=== PATIENT | male | born 1945 | race African-American/Black ===

== ENCOUNTER 2016-11-11 16:19 | Inpatient (IN) ==
--- NOTE | 2016-11-11 17:37 | EKG Report ---
Stationary ECG Study [facility] ER Test Date: 11/11/2016 4:35:46 PM Pat Name: JF LANE Department: Room: Gender: Medical Delivery Technician: Jolie Christianson : 1945 Requested by: Homer Davidson Order Number: [id number] Jos MD: SHARATH NG Intervals [place] Rate: 78 P: 75 CO: 161 QRS: 45 QRSD: 90 T: 75 QT: 380 QTc: 413 Interpretive Statements SINUS RHYTHM Electronically Signed On 11-12-16 09:56:46 NURSING STAFFING COORDINATOR by SHARATH NG [id number]
[2016-11-11] MEDS ORDERED: methylPREDNISolone SOD SUC 125 MG/2 ML VIAL IV STA (17:40)
[2016-11-11] MEDS ORDERED: ONDANSETRON 4 MG/2 ML VIAL IV STA (17:40)
[2016-11-11] MEDS ORDERED: NITROGLYCERIN 2% OINT 1 INCH/GM PACK TOP STA (17:40)
[2016-11-11] MEDS ORDERED: FUROSEMIDE 100 MG/10 ML VIAL IV STA (17:40)
[2016-11-11] MEDS ORDERED: MORPHINE 2 MG/1 ML SYRINGE IV STA (17:40)
[2016-11-11] MEDS ORDERED: ALBUTEROL NEB SOLN 5 MG/ML 20 ML/BOTTLE RESP TX ONE (18:00)
[2016-11-11] MEDS ORDERED: FUROSEMIDE 40 MG/4 ML VIAL ONE (18:02)
[2016-11-11] MEDS ORDERED: NITROGLYCERIN 2% OINT 1 INCH/GM PACK TOP ONE (18:02)
[2016-11-11] MEDS ORDERED: MORPHINE 2 MG/1 ML SYRINGE ONE (18:03)
[2016-11-11] MEDS ORDERED: ONDANSETRON 4 MG/2 ML VIAL ONE (18:03)
[2016-11-11] MEDS ORDERED: FUROSEMIDE 20 MG/2 ML VIAL ONE (18:03)
[2016-11-11] MEDS ORDERED: methylPREDNISolone SOD SUC 125 MG/2 ML VIAL ONE (18:03)
[2016-11-11 18:13] LABS: Basophils % 0.5 % (0.0-0.8); Eosinophils # 0.3 10*3/uL (0.0-0.87); Eosinophils % 3.8 % (0.00-10.9); Hematocrit 37.4 VOL% (42.0-52.0); Immature Granulocytes % 0.3 %; Immature Granulocytes Absolute 0.02 #; Lymphocytes # 2.1 10*3/uL (1.4-4.0); Lymphocytes % 28.1 % (21.2-54.2); Mean Corpuscular HGB Conc 32.1 GM/DL (32-36); Mean Corpuscular Hemoglobin 28 PG (27-34); Mean Corpuscular Volume 86.4 FL (87-102); Monocytes # 0.8 10*3/uL (0.11-0.8); Monocytes % 10.5 % (1.7-12.7); Neutrophils # 4.2 10*3/uL (1.4-7.4); Neutrophils % 56.8 % (38.7-73.9); Platelet Count 249 10*3/uL (130-400); Red Blood Count 4.33 10*6/uL (3.8-5.5); Red Cell Distribution Width 14.4 % (9.3-17.3); White Blood Count 7.4 10*3/uL (4.5-13.71)
[2016-11-11 18:20] LABS: Apearance,Urine CLEAR (Clear); Bilirubin,Urine Negative (Negative); Blood, Urine Negative (Negative); Glucose,Urine (UA) Negative (Negative); Ketones,Urine Negative (Negative); Mucus,Urine Occasional /LPF (Occasional); Nitrite,Urine Negative (Negative); Protein,Urine Negative; RBC,Urine 1 /HPF (0-4); Urine Color Yellow (Yellow); Urine Specific Gravity 1.018 (1.001-1.035); Urine Urobilinogen < 2.0 EU/DL (0.2-1.0); WBC,Urine 1 /HPF (0-6)
[2016-11-11 18:24] LABS: PT Patient Result 10.4 SECS
--- NOTE | 2016-11-11 18:35 | EKG Report ---
Stationary ECG Study [facility] ER Test Date: 11/11/2016 6:34:07 PM Pat Name: JF LANE Department: Room: Gender: M Procurement Services Manager: : 1945 Requested by: Homer Davidson Order Number: [id number] Jos MD: SHARATH NG Intervals [place] Rate: 96 P: 45 NV: 150 QRS: 8 QRSD: 92 T: 58 QT: 366 QTc: 420 Interpretive Statements SINUS RHYTHM Electronically Signed On 11-12-16 09:57:15 HYDRATOR by SHARATH NG [id number]
[2016-11-11 18:52] LABS: Alanine Aminotransferase 28 U/L (16-61); Albumin 3.5 G/DL (3.4-5.0); Alkaline Phosphatase 119 U/L (45-117); Aspartate Amino Transferase 21 U/L (0-37); Blood Urea Nitrogen 14 MG/DL (7-18); Calcium 9.4 MG/DL (8.5-10.1); Glucose 154 MG/DL (74-106); Magnesium 2.1 MG/DL (1.8-2.4); Osmolality,Calculated 280.5 MOS/KG (273-304); Potassium 4.2 MMOL/L (3.5-5.1); Sodium 139 MMOL/L (136-145); Total Protein 6.9 G/DL (6.4-8.3); Troponin I Only < 0.015 NG/ML (0.00-0.045)
--- NOTE | 2016-11-11 18:54 | Emergency Department Note ---
Logan Ortega Emily, am scribing for, and in the presence of, Homer Newberry MD 18: 11. Rohith Ortega Charles R, MD, personally performed the services described in this documentation, ascribed by Patricia Ford in my presence, and it is both accurate and complete [id number] . Arrival - Arrival Chief Complaint: Shortness of Breath Stated Complaint: sob ED Nursing Triage Note: swelling to lower extremities with sob that started about seven days ago. Mode of Arrival: Ambulatory Limitations: No Limitations Source: Patient Time Seen by Provider: 11/11/16 17:32 - History of Present Illness HPI Narrative: Pt is a 71 y/o male who came to ED with c/o swelling to lower extremities that started 7 days ago. Pt has associated sxs of SOB, mild, intermittent chest "tightness," dyspnea with exertion, orthopnea, right arm pain, diaphoresis, but nausea. Pt also denies hx of CHF. No other complaint/pain in ED. Onset (ago): day(s) Consistency: constant Severity: mild, moderate Severity scale (1-10): 5 Quality: aching Allergies/Adverse Reactions: Allergies Allergy/AdvReac Type Severity Reaction Status Date / Time Penicillins AdvReac HIVES Verified 07/14/16 11:35 Home Medications: Home Medications Medication Instructions Recorded Confirmed Type Budesonide/Formoterol 160-4.5 2 puff INH BID inhaler 07/16/16 11/11/16 Rx [Symbicort 160-4.5] glipiZIDE [Glucotrol] 5 mg PO BIDAC tablet 07/16/16 11/11/16 Rx Amlodipine Besylate [Amlodipine 10 mg PO DAILY 11/11/16 11/11/16 History Besylate] Atorvastatin Calcium 20 mg PO DAILY 11/11/16 11/11/16 History Metformin HCl 500 mg PO BIDAC 11/11/16 11/11/16 History Montelukast Sodium 10 mg PO DAILY 11/11/16 11/11/16 History Review of System - Review of System 12 point system: reviewed and no additional remarkable complaints except as stated - Review of System Constitutional: Present: diaphoresis. Absent: chills, fever Respiratory: Present: respiratory distress. Absent: cough Cardiovascular: Present: chest pain (mild tightness), dyspnea on exertion, orthopnea, edema (in lower extremities). Absent: syncope Gastrointestinal: Absent: abdominal pain, nausea, vomiting, diarrhea Musculoskeletal: Present: arm pain (right). Absent: back pain, leg pain, neck pain Skin: Absent: rash Neurological: Absent: headache, numbness, paresthesias Medical,Surgical,& Family Hx - Medical History Cardio: History of: Hypertension Psychological: History of: Psychiatric Problems (psychosis, unspecified) Endocrine: History of: Diabetes Mellitus (NIDDM), Dyslipidemia Respiratory: History of: COPD Musculoskeletal: History of: Degenerative Disk Disease - Surgical History Abdominal Surgeries: Surgical HX of: Appendectomy - Family History Family History: Reports;: Family Cancer (MOTHER-UNKNOWN OF WHAT KIND) Denies;: Family Diabetes, Family Heart Disease, Family Hypertension, Family Psychiatric Problems, Family Stroke - Social History Smoking Status: Never smoker Exam Vital Signs: Vital Signs Temperature 98.3 F 11/11/16 17:42 Pulse Rate 89 11/11/16 18:45 Respiratory Rate 20 11/11/16 18:45 Blood Pressure 152/94 11/11/16 18:45 O2 Sat by Pulse Oximetry 96 11/11/16 18:45 - General General appearance: alert, in no apparent distress - Head Head exam: Present: atraumatic, normocephalic - Eye Eye exam: Present: PERRL, EOMI - ENT ENT exam: Present: mucous membranes moist. Absent: mucous membranes dry - Neck Neck exam: Present: full ROM. Absent: tenderness - Chest Chest inspection: Present: symmetric chest wall rise. Absent: tenderness - Respiratory Respiratory exam: Present: rales (bilateral rales). Absent: respiratory distress - Cardiovascular Cardiovascular exam: Present: tachycardia, normal heart sounds - Abdominal Exam Abdominal exam: Present: soft. Absent: tenderness - Extremities Exam Extremities exam: Present: full ROM, pedal edema (+2). Absent: tenderness - Neurological Exam Neurological exam: Present: alert, oriented X3, CN II-XII intact. Absent: motor sensory deficit - Psychiatric Psychiatric exam: Present: normal affect, normal mood - Skin Skin exam: Present: warm, dry Course - Consultations Consultation #1: Dr. Cisneros will admit patient Time: 21:07 Results - Labs CBC & BMP: 11/11/16 18:00 11/11/16 18:00 Lab Results: I have reviewed the patients labs Labs: Laboratory Tests 11/11/16 11/11/16 18:00 18:04 Hgb 12.0 L Hct 37.4 L MCV 86.4 L Urine Urobilinogen < 2.0 H Laboratory Tests 11/11/16 18:00 Glucose 154 H Alkaline Phosphatase 119 H Albumin/Globulin Ratio 1.0 L Laboratory Tests 11/11/16 18:00 Glucose 154 H Alkaline Phosphatase 119 H Albumin/Globulin Ratio 1.0 L - Diagnostic Findings Procedure: Chest x-ray: report reviewed by me (Cardiomegaly without decompensation.) Disposition Clinical Impression: Acute dyspnea, Chest pain, Congestive heart failure Case discussed with: patient, patient's family Disposition: Still a Patient Condition: Stable Time of Disposition: 21:12
--- NOTE | 2016-11-11 18:55 | XRay Report ---
Exam: XR chest 1V portable Date: 11/11/2016 5:41 PM Indication: Shortness of breath Comparison: 07/15/2016 Technical:AP portable Findings: External cardiac leads tubing are present. Cardiomegaly is present. No obvious overt congestive failure infiltrates or effusions present. Mediastinum and bony structures are intact Impression: 1. Cardiomegaly without decompensation. PROCEDURE INTERPRETED AT [facility] DEPARTMENT OF RADIOLOGY Final Report Signed by: Dr. Luis Cornejo
[2016-11-11] MEDS ORDERED: ACETAMINOPHEN 325 MG TABLET PO PRN (22:27)
[2016-11-11] MEDS ORDERED: ONDANSETRON 4 MG/2 ML VIAL IV PRN (22:27)
[2016-11-11] MEDS: glipiZIDE 5 MG TABLET PO SCH (22:55)
[2016-11-11] MEDS: ENOXAPARIN 40 MG/0.4 ML SYRINGE SUBCUT SCH (22:56)
[2016-11-11] MEDS: BUDESONIDE/FORMOTEROL 160-4.5 INHALER 6 GM INH SCH (22:56)
--- NOTE | 2016-11-11 23:04 | Hospitalist History & Physical ---
Assessment and Plan (1) DM2 (diabetes mellitus, type 2) Status: Acute Assessment and plan: The patient is to the hospital with diabetes controlled on oral agents. The patient has swelling to lower extremities with cardiomegaly but with brain nitrated peptide of 10. The patient has mild vascular redistribution on chest x -ray and some COPD with apparent obesity hypoventilation syndrome. The patient' s Larsh of edema is likely multifactorial. There does not appear to be much proteinuria and the creatinine is normal. We will try to improve the patient's symptoms with diuresis, beta agonist nebulized breathing therapies, and control of blood pressure. We'll check echocardiogram as well as Doppler of lower extremities to rule out deep vein thrombosis and possible pulmonary embolism. We'll recheck troponin value in the morning as well as EKG. Current Visit: Yes Qualifiers: Diabetes mellitus complication status: with ophthalmic complications Diabetic retinopathy severity: with moderate nonproliferative retinopathy Diabetes mellitus macular edema: without macular edema Diabetes mellitus snf insulin use: without snf use Laterality: bilateral (2) Congestive heart failure Status: Acute Current Visit: Yes (3) Acute exacerbation of chronic obstructive airways disease Status: Resolved Current Visit: No (4) Atypical chest pain Status: Acute Current Visit: No History of Present Illness Chief complaint: shortness of breath and swelling of lower extremities History of present illness: Mr. Cisneros is a 71 year old male who has outpatient medical [facility]. The patient has history of essential hypertension, cardiomegaly, diabetes mellitus type 2, and COPD. The patient's symptoms began about 7 days prior to admission the hospital and included shortness of breath associated with swelling of the lower extremities and tightness of abdomen. The patient claims compliance with his medications. The patient's symptoms are moderate, continuous, and worsening. The patient's symptoms began to improve in the emergency room with beta agonist nebulized breathing therapy and diuretic medication. The patient's symptoms are not associated with fever, chills, weight loss. The patient's symptoms are associated with weight gain and swelling of the abdomen. The patient does not complain any change of bowel habit. Home Medications Medication Instructions Recorded Confirmed Type Budesonide/Formoterol 160-4.5 2 puff INH BID inhaler 07/16/16 11/11/16 Rx [Symbicort 160-4.5] glipiZIDE [Glucotrol] 5 mg PO BIDAC tablet 07/16/16 11/11/16 Rx Amlodipine Besylate [Amlodipine 10 mg PO DAILY 11/11/16 11/11/16 History Besylate] Atorvastatin Calcium 20 mg PO DAILY 11/11/16 11/11/16 History Metformin HCl 500 mg PO BIDAC 11/11/16 11/11/16 History Montelukast Sodium 10 mg PO DAILY 11/11/16 11/11/16 History Allergies Allergy/AdvReac Type Severity Reaction Status Date / Time Penicillins AdvReac HIVES Verified 07/14/16 11:35 Medical,Surgical,& Family Hx - Medical History Cardio: History of: Hypertension Psychological: History of: Psychiatric Problems (psychosis, unspecified) Endocrine: History of: Diabetes Mellitus (NIDDM), Dyslipidemia Respiratory: History of: COPD Musculoskeletal: History of: Degenerative Disk Disease - Surgical History Abdominal Surgeries: Surgical HX of: Abdominal Surgery, Appendectomy - Family History Family History: Reports;: Family Cancer (MOTHER-UNKNOWN OF WHAT KIND) Denies;: Family Diabetes, Family Heart Disease, Family Hypertension, Family Psychiatric Problems, Family Stroke - Social History Smoking Status: Never smoker Frequency of Alcohol Use: None Type of Drug Use: None Marital Status: Lives With:: Spouse Functional capacity: independent ambulation 12 point system: reviewed and no additional remarkable complaints except as stated Exam - Constitutional Vitals: Period Temp Pulse Resp BP Sys/Knutson Pulse Ox Last 24 Hr 97.3 F 98-99 18-20 129-147/82-87 90-93 Exam: Constitutional System: Mild distress on mechanical shortness of breath. No tremulousness. Head: Normocephalic, atraumatic. Ears, Nose and Throat System: No evidence of Otitis or Mastoiditis. No epistaxis or discharge Eyes System: Pupils equal, round, and reactive. Extraocular muscles intact. Neck: Supple, without adenopathy, 1+ jugular venous distention. No thyromegaly , neck mass, or prior surgery apparent. Respiratory System: Chest with mild wheezing and mild air trapping to auscultation. There are no rales apparent Cardiovascular System: Heart with regular rate and rhythm. There is S4 murmur. There is a right ventricular heave GI System: Abdomen soft, nontender, distended. Hypo active bowel sounds present. Musculoskeletal System: limbs with 1+ pedal edema. Full distal pulses. Neurological System: No discernable sensory deficit. No aphasia Psychiatric System: Conversation is rational, and somewhat anxious Results - Labs CBC & BMP: 11/11/16 18:00 11/11/16 18:00 Lab Results: I have reviewed the past 24 hour labs - Diagnostic Findings Procedure: Chest x-ray: image reviewed by me (cardiomegaly and mild vascular redistribution of the lungs without infiltrate)
[2016-11-12 05:09] LABS: Basophils % 0.1 % (0.0-0.8); Hematocrit 37.6 VOL% (42.0-52.0); Hemoglobin 11.9 GM/DL (14.0-18.0); Immature Granulocytes % 0.5 %; Immature Granulocytes Absolute 0.04 #; Lymphocytes # 0.4 10*3/uL (1.4-4.0); Lymphocytes % 5.5 % (21.2-54.2); Mean Corpuscular HGB Conc 31.6 GM/DL (32-36); Mean Corpuscular Hemoglobin 27 PG (27-34); Mean Corpuscular Volume 85.8 FL (87-102); Mean Platelet Volume 11.8 FL (9.6-12.0); Monocytes # 0.1 10*3/uL (0.11-0.8); Monocytes % 0.9 % (1.7-12.7); Neutrophils # 7.3 10*3/uL (1.4-7.4); Platelet Count 242 10*3/uL (130-400); Red Blood Count 4.38 10*6/uL (3.8-5.5); Red Cell Distribution Width 14.4 % (9.3-17.3); White Blood Count 7.8 10*3/uL (4.5-13.71)
[2016-11-12 05:40] LABS: Blood Urea Nitrogen 18 MG/DL (7-18); Calcium 9.1 MG/DL (8.5-10.1); Glucose 386 MG/DL (74-106); Potassium 4.9 MMOL/L (3.5-5.1); Sodium 136 MMOL/L (136-145); Troponin I Only < 0.015 NG/ML (0.00-0.045)
[2016-11-12 06:04] LABS: Hypochromasia Slight; Lymphocytes 4 % (20-55); Platelet Estimate Adequate; Segmented Neutrophils 94 % (50-85); Total Cells Counted 100
--- NOTE | 2016-11-12 07:20 | Hospitalist Progress Note ---
Assessment and Plan (1) Edema Status: Acute Assessment and plan: Possible vasodilatory effect of amlodipine. Doubt BMI high enough to generate false negative BNP and if cor pulmonale would expect BNP rise. No support for diabetic nephrosis or similar process. Current Visit: Yes (2) DM2 (diabetes mellitus, type 2) Status: Chronic Current Visit: Yes Qualifiers: Diabetes mellitus complication status: with ophthalmic complications Diabetic retinopathy severity: with moderate nonproliferative retinopathy Diabetes mellitus macular edema: without macular edema Diabetes mellitus water maintenance supervisor insulin use: without fci use Laterality: bilateral Hospitalist: Subjective Interval history: 71 yo male treated in August of 2015 for bronchospasm with mild hypoxemia without CO2 retention. At that time had bronchoscopy performed with retained secretions only. He reports subsequent follow-up with Dr Brewer. He was admitted last June for atypical chest pain with bronchospasm. Admitted on this occasion with peripheral edema and dyspnea. His chest Xray shows possible cardiomegaly without infiltrate or cephalization of flow. His ECG, cTnI, and BNP are normal. He is on high dose Norvasc. He is diabetic without proteinuria and with normal serum albumen level. He has bumped his creatinine with diuresis. Exam - Constitutional Vitals: Period Temp Pulse Resp BP Sys/Knutson Pulse Ox Last 24 Hr 97.3 F-98.5 F 97-110 18-20 129-154/82-87 90-97 General appearance: over weight - Respiratory Respiratory exam: Present: clear to auscultation bilaterally. Absent: rales, rhonchi, wheezes - Cardiovascular Cardiovascular exam: Present: regular rate and rhythm - GI/Abdominal GI/Abdominal exam: Absent: ascites, distended, organomegaly, tenderness - Extremities Exam Extremities exam: Present: edema (trace) - Neurological Exam Neurological exam: Present: alert, oriented X3 - Psychiatric Psychiatric exam: Present: normal affect, normal mood Results - Labs CBC & BMP: 11/12/16 03:56 11/12/16 03:56 Labs: cTnI negative
--- NOTE | 2016-11-12 07:56 | XRay Report ---
History is dyspnea Comparison 11/11/2016 The heart is mildly enlarged with mild vascular prominence There are slightly increasing interstitial opacities in the lung bases with mild hypoaeration changes. No confluent infiltrate is seen. Impression: Slightly increasing basilar infiltrates versus edema with mildly increasing hypoaeration changes in the lung bases as well PROCEDURE INTERPRETED AT [facility] DEPARTMENT OF RADIOLOGY Final Report Signed by: Dr. Carol Rose
--- NOTE | 2016-11-12 08:06 | EKG Report ---
Stationary ECG Study [facility] Test Date: 11/12/2016 8:05:35 AM Pat Name: JF CISNEROS Department: Room: 266 Gender: M Patient Care Assistant: : 1945 Requested by: Leon Cisneros Order Number: [id number] Jos MD: SHARATH NG Intervals [place] Rate: 88 P: 53 AL: 168 QRS: 17 QRSD: 89 T: 58 QT: 364 QTc: 410 Interpretive Statements SINUS RHYTHM Electronically Signed On 11-12-16 10:00:09 ENTERPRISE SYSTEMS MANAGER by SHARATH NG [id number]
[2016-11-12] MEDS: glipiZIDE 5 MG TABLET PO SCH ×2 (08:35→17:05)
[2016-11-12] MEDS: ATORVASTATIN 40 MG TABLET PO SCH (08:35)
[2016-11-12] MEDS: PANTOPRAZOLE 40 MG TABLET PO SCH (08:35)
[2016-11-12] MEDS: amLODIPine 10 MG TABLET PO SCH (08:35)
[2016-11-12] MEDS: metFORMIN 500 MG TABLET PO SCH ×2 (08:36→17:05)
[2016-11-12] MEDS: BUDESONIDE/FORMOTEROL 160-4.5 INHALER 6 GM INH SCH ×2 (08:38→21:42)
[2016-11-12] MEDS ORDERED: FUROSEMIDE 40 MG/4 ML VIAL IV SCH (09:00)
[2016-11-12] MEDS ORDERED: oxyCODONE/ACETAMINOPHEN 5-325 MG TABLET PO PRN (11:13)
[2016-11-12] MEDS: MONTELUKAST 10 MG TABLET PO SCH (12:38)
--- NOTE | 2016-11-12 15:27 | Ultrasound Report ---
Exam: US venous doppler LE BI Indication: Dyspnea Date: 11/12/2016 Findings: Grayscale color flow duplex/Doppler imaging and spectral analysis waveform imaging was performed with real-time ultrasound with image stored and captured. The right common femoral, superficial femoral, popliteal saphenous veins are patent with normal augmentation and compression. There is no evidence of popliteal or Pittman's cyst. Normal wave form analysis present. Normal color flow The left common femoral, superficial femoral, popliteal saphenous veins are patent with normal augmentation and compression. There is no evidence of popliteal or Pittman's cyst. Normal wave form analysis present. Normal color flow Impression: 1. No DVT PROCEDURE INTERPRETED AT [facility] DEPARTMENT OF RADIOLOGY Final Report Signed by: Dr. Luis Cornejo
--- NOTE | 2016-11-12 20:34 | ECHO Report ---
Luis Cisneros Exam Date: 11/12/2016 09:54 Referring Physician: Technologist: Matt BALTAZAR Age: 71 Ht (in): Wt (lb): Gender: M Exam Location: [facility] Echo Indications: DM, dyspnea, CHF, COPD, chest pain BP: / HR: Rhythm: Sinus Technical Quality: Fair IMPRESSIONS Normal LV systolic function, ejection fraction 55%. Grade 1/4 diastolic dysfunction. Moderate concentric left ventricular hypertrophy. Mild left atrial enlargement. Mild mitral and tricuspid regurgitation. MEASUREMENTS (Male / Female) Normal Values 2D ECHO LV Diastolic Diameter PLAX 4.9 cm 4.2 - 5.9 / 3.9 - 5.3 cm LV Systolic Diameter PLAX 3.8 cm LV Fractional Shortening PLAX 23.5 % IVS Diastolic Thickness 1.6 cm 0.6 - 1.0 / 0.6 - 0.9 cm LVPW Diastolic Thickness 1.6 cm 0.6 - 1.0 / 0.6 - 0.9 cm RV Internal Dim ED PLAX 2.9 cm Aortic Root Diameter 2.6 cm LA Systolic Diameter LX 4.3 cm 3.0 - 4.0 / 2.7 - 3.8 cm DOPPLER TR Peak Velocity 221.0 cm/s TR Peak Gradient 19.5 mmHg FINDINGS Left Ventricle Moderately increased septal wall thickness.- Mild- moderate concentric left ventricular hypertrophy. Left ventricular ejection fraction is estimated at 55 %. Right Ventricle Normal right ventricular size. Right Atrium Normal right atrial size. Left Atrium Mildly increased left atrial diameter. Mitral Valve Mildly thickened mitral valve with mild mitral regurgitation. Aortic Valve Aortic valve sclerosis without stenosis or regurgitation. Tricuspid Valve Morphologically normal tricuspid valve. Mild tricuspid valve regurgitation. Tricuspid regurgitation velocities suggest a PAP of 19.5 mmHg + RAP. Pulmonic Valve Morphologically normal pulmonic valve. Pericardium No pericardial effusion. Aorta Normal size aortic root and proximal ascending aorta. Ranjana Simpson MD (Electronically Signed) Final Date: 12 November 2016 20:33
[2016-11-12] MEDS: ENOXAPARIN 40 MG/0.4 ML SYRINGE SUBCUT SCH (21:42)
[2016-11-13 06:35] LABS: Osmolality,Calculated 291.4 MOS/KG (273-304); Potassium 4.5 MMOL/L (3.5-5.1)
[2016-11-13] MEDS: metFORMIN 500 MG TABLET PO SCH ×2 (09:46→18:08)
[2016-11-13] MEDS: MONTELUKAST 10 MG TABLET PO SCH (09:46)
[2016-11-13] MEDS: amLODIPine 10 MG TABLET PO SCH (09:46)
[2016-11-13] MEDS: ATORVASTATIN 40 MG TABLET PO SCH (09:46)
[2016-11-13] MEDS: PANTOPRAZOLE 40 MG TABLET PO SCH (09:46)
[2016-11-13] MEDS: glipiZIDE 5 MG TABLET PO SCH ×2 (09:46→18:09)
[2016-11-13] MEDS: BUDESONIDE/FORMOTEROL 160-4.5 INHALER 6 GM INH SCH ×2 (09:47→21:18)
--- NOTE | 2016-11-13 11:25 | Physician Query Form ---
CLICK EDIT DOCUMENT TO SELECT QUERY ANSWER --> OK --> SIGN Joselin Hudson RN Clinical [employer] W) [phone] (f) [phone] [email or web address] PROVIDERS: Make your selection(s) from the choices in EACH section by typing an "x" and enter comments in the comment section. Please use your independent medical judgment in providing your response. This request does not imply that any particular answer is desired or expected. CLINICAL INDICATORS: (Providers should not edit this section) Based on documentation of Creatinine from 1.00 to 1.60. GFR form 114 to 69. Monitored with serial lab checks. Clarify which of the following most accurately represents the patient's renal status: (x ) Acute kidney injury (non-traumatic) ( ) Acute renal failure ( ) Acute renal failure with underlying Chronic Kidney Disease (CKD) - please provide stage below ( ) Acute renal failure with pathological renal lesion ( ) Acute renal failure with necrosis ( ) tubular ( ) medullary ( ) cortical ( ) CKD - please provide stage below ( ) End Stage Renal Disease ( ) Acute interstitial nephritis ( ) Hepatorenal syndrome ( ) Other, please specify: ( ) Clinically unable to determine Chronic Kidney Disease Stages Source: National Kidney Disease Foundation ( ) Stage I (eGFR > or = 90) ( ) Stage II (eGFR 60 - 89) ( ) Stage III (eGFR 30 - 59) ( ) Stage IV (eGFR 15 - 29) ( ) Stage V (eGFR < 15 or dialysis) COMMENTS: Use of terms such as suspected, likely, or probable (associated with a specific diagnosis that is being evaluated, monitored, or treated as if it exists) are acceptable and can be restated in the discharge summary if not ruled out. MTDD
--- NOTE | 2016-11-13 11:28 | Physician Query Form ---
CLICK EDIT DOCUMENT TO SELECT QUERY ANSWER --> OK --> SIGN Joselin Hudson RN Clinical Shift Mgr W) [phone] (f) [phone] [email or web address] PROVIDERS: Make your selection(s) from the choices in EACH section by typing an "x" and enter comments in the comment section. Please use your independent medical judgment in providing your response. This request does not imply that any particular answer is desired or expected. CLINICAL INDICATORS: (Providers should not edit this section) Based on documentation of "Acute CHF" Echo shows EF 55%. Grade 1/4 Diastolic Dysfunction. CXR shows slightly increasing basilar infiltrates. BNP 11. Treated with IV Lasix. Please provide further specificity regarding CHF. ACUITY: (x ) Acute ( ) Chronic ( ) Acute on Chronic ( ) Clinicallly unable to determine TYPE: ( ) Systolic (x ) Diastolic ( ) Combined Systolic/Diastolic ( ) Other, please specify: ( ) Clinically unable to determine ( ) The patient does NOT have CHF COMMENTS: Use of terms such as suspected, likely, or probable (associated with a specific diagnosis that is being evaluated, monitored, or treated as if it exists) are acceptable and can be restated in the discharge summary if not ruled out. [facility]
[2016-11-13] MEDS ORDERED: BISACODYL 5 MG TABLET PO ONE (11:55)
--- NOTE | 2016-11-13 12:00 | Hospitalist Progress Note ---
Assessment and Plan - Time spent with patient Time spent with patient: Less than 30 minutes (due to assessment, plan and documentation) (1) Acute diastolic CHF (congestive heart failure) Status: Acute Current Visit: Yes (2) Acute dyspnea Status: Acute Current Visit: Yes (3) DM2 (diabetes mellitus, type 2) Status: Chronic Current Visit: Yes Qualifiers: Diabetes mellitus complication status: with ophthalmic complications Diabetic retinopathy severity: with moderate nonproliferative retinopathy Diabetes mellitus macular edema: without macular edema Diabetes mellitus skilled nursing insulin use: without aerospace assembler use Laterality: bilateral (4) Hypertension Status: Acute Current Visit: No (5) Acute exacerbation of chronic obstructive airways disease Status: Resolved Current Visit: No Hospitalist: Subjective Interval history: Mr. Cisneros was seen lying in bed today. He is having a lot of abdominal swelling and lower extremity swelling. It has been felt that this is due to his Norvasc. His family states that he has been on HCTZ in the past, but this was stopped with his Lisinopril was stopped. I will restart this at 6.25 mg PO daily. He also complaints of slight increase in shortness of breath. Will get a cxr to ensure nothing there. Shallow breaths. He has not had a BM in several days and is feeling quite constipated. I have ordered Dulcolax 2 tabs now for this. We will continue to monitor his progress. He was admitted with Acute diastolic CHf, COPD exacerbation. He did have a bump in his creatinine to 1.6, but is down now. SHAWANDA has resolved. Labs in AM. Exam - Constitutional Vitals: Period Temp Pulse Resp BP Sys/Knutson Pulse Ox Last 24 Hr 96.4 F-98.1 F 82-101 16-20 143-167/72-88 90-100 General appearance: no acute distress, over weight - Head Head exam: Present: normal inspection, normocephalic - Eye Eye exam: Present: EOMI. Absent: scleral icterus Pupils: Present: SABINE, normal accommodation - ENT ENT exam: Present: normal exam, normal oropharynx - Neck Neck exam: Present: normal inspection. Absent: lymphadenopathy - Respiratory Respiratory exam: Present: other (shallow breaths). Absent: accessory muscle use - Cardiovascular Cardiovascular exam: Present: regular rate and rhythm - GI/Abdominal GI/Abdominal exam: Present: normal bowel sounds, distended. Absent: tenderness - Extremities Exam Extremities exam: Present: edema (generalized) - Back Exam Back exam: Present: normal inspection. Absent: muscle spasm - Neurological Exam Neurological exam: Present: alert, oriented X3 - Psychiatric Psychiatric exam: Present: normal affect, normal mood - Skin Skin exam: Present: normal color, warm, dry, intact Results - Labs CBC & BMP: 11/12/16 03:56 11/13/16 05:26 Lab Results: I have reviewed the past 24 hour labs
[2016-11-13] MEDS: hydroCHLOROthiazide 25 MG TABLET PO SCH (12:07)
--- NOTE | 2016-11-13 12:43 | XRay Report ---
History short of breath Chest, 2 views Comparison 11/12/2016 The heart is enlarged. There is chronic vascular congestion with slightly increased markings in the lung bases. No more focal consolidation seen. Confluent shadows overlie the left chest laterally Impression: slight increasing basilar infiltrates versus edema superimposed on chronic changes PROCEDURE INTERPRETED AT [facility] DEPARTMENT OF RADIOLOGY Final Report Signed by: Dr. Carol Rose
[2016-11-13] MEDS: ENOXAPARIN 40 MG/0.4 ML SYRINGE SUBCUT SCH (21:30)
[2016-11-14 04:44] LABS: Basophils % 0.2 % (0.0-0.8); Eosinophils # 0.2 10*3/uL (0.0-0.87); Eosinophils % 2.4 % (0.00-10.9); Hematocrit 38.3 VOL% (42.0-52.0); Immature Granulocytes % 0.3 %; Immature Granulocytes Absolute 0.03 #; Lymphocytes # 3.5 10*3/uL (1.4-4.0); Lymphocytes % 35.3 % (21.2-54.2); Mean Corpuscular HGB Conc 31.3 GM/DL (32-36); Mean Corpuscular Hemoglobin 28 PG (27-34); Mean Platelet Volume 10.5 FL (9.6-12.0); Monocytes % 10.2 % (1.7-12.7); Neutrophils # 5.1 10*3/uL (1.4-7.4); Neutrophils % 51.6 % (38.7-73.9); Platelet Count 258 10*3/uL (130-400); Red Blood Count 4.35 10*6/uL (3.8-5.5); Red Cell Distribution Width 14.7 % (9.3-17.3); White Blood Count 9.8 10*3/uL (4.5-13.71)
[2016-11-14 05:22] LABS: Albumin 3.6 G/DL (3.4-5.0); Bilirubin,Total 1.4 MG/DL (0.2-1.0); Calcium 9.4 MG/DL (8.5-10.1); Osmolality,Calculated 287.1 MOS/KG (273-304); Potassium 4.7 MMOL/L (3.5-5.1); Total Protein 7.3 G/DL (6.4-8.3)
[2016-11-14] MEDS: amLODIPine 10 MG TABLET PO SCH (09:15)
[2016-11-14] MEDS: PANTOPRAZOLE 40 MG TABLET PO SCH (09:16)
[2016-11-14] MEDS: MONTELUKAST 10 MG TABLET PO SCH (09:16)
[2016-11-14] MEDS: glipiZIDE 5 MG TABLET PO SCH (09:16)
[2016-11-14] MEDS: hydroCHLOROthiazide 25 MG TABLET PO SCH (09:16)
[2016-11-14] MEDS: ATORVASTATIN 40 MG TABLET PO SCH (09:16)
[2016-11-14] MEDS: metFORMIN 500 MG TABLET PO SCH (09:16)
[2016-11-14] MEDS: BUDESONIDE/FORMOTEROL 160-4.5 INHALER 6 GM INH SCH (09:19)
[2016-11-14 12:18] VITALS: BP 131/81
--- NOTE | 2016-11-14 13:40 | Discharge Summary ---
Hospital Course - Hospital Course Hospital Course: This hospitalization included patient admitted for shortness of breath volume overload. He had adjustment in antihypertensive medications. Diuretic medications were restarted. Patient had a brisk diuresis once this was done. Blood pressure continued to improve. His volume status has improved. His shortness of breath also improved. No chest pain reported. He has been able to sit up at side of the bed without difficulty. At this time is reached maximal hospitalization. He is ready for discharge. He'll follow with outpatient clinic at the [facility] as scheduled. - Time spent with patient Time with patient DS: Greater than 30 minutes Diagnosis - Discharge Diagnosis (1) Congestive heart failure Status: Chronic (2) Acute dyspnea Status: Resolved (3) Hypertension Status: Chronic (4) Diabetes Status: Chronic (5) Edema Status: Resolved Discharge Plan - Discharge Data Disposition: Disch To Home/Self Care Condition at Discharge: Stable Discharge Diet: advance to your usual diet Activity: resume usual activities as tolerated Contact your physician if you experience:: fever over 101 - Discharge Medications New Pantoprazole Tab [Protonix Tab] 40 mg PO DAILY #30 tablet hydroCHLOROthiazide [Hydrochlorothiazide] 6.25 mg PO DAILY #30 tablet Continue Budesonide/Formoterol 160-4.5 [Symbicort 160-4.5] 2 puff INH BID inhaler glipiZIDE [Glucotrol] 5 mg PO BIDAC tablet Montelukast Sodium 10 mg PO DAILY Amlodipine Besylate 10 mg PO DAILY Atorvastatin Calcium 20 mg PO DAILY Metformin HCl 500 mg PO BIDAC Oxycodone HCl/Acetaminophen [Oxycodone-Acetaminophen 5-325] 1 each PO QID PRN PRN Reason: Pain - Follow Up or Referral - Forms/Instructions Additional Discharge Instructions: Follow-up with Dr. Hernandez as scheduled at the [facility] Exam - Constitutional Vitals: Period Temp Pulse Resp BP Sys/Knutson Pulse Ox Last 24 Hr 97.1 F-97.8 F 61-92 18-22 131-167/74-92 93-97 General appearance: over weight - Head Head exam: Present: normal inspection - Eye Eye exam: Present: EOMI Pupils: Present: SABINE - Respiratory Respiratory exam: Present: clear to auscultation bilaterally - Cardiovascular Cardiovascular exam: Present: regular rate and rhythm - GI/Abdominal GI/Abdominal exam: Present: normal bowel sounds - Extremities Exam Extremities exam: Present: normal inspection, full ROM Discharge Results Labs on day of discharge: Labs from last 24 hours 11/14/16 11/14/16 11/14/16 11:55 08:01 04:35 WBC RBC Hgb Hct MCV MCH MCHC RDW Plt Count MPV Neut % (Auto) Lymph % (Auto) [place] % (Auto) Eos % (Auto) Baso % (Auto) Neut # (Auto) Lymph # (Auto) [place] # (Auto) Eos # (Auto) Baso # (Auto) Immature Gran % Nucleated RBC % Immature Gran # Nucleated RBCs # Sodium 142 Potassium 4.7 Chloride 102 Carbon Dioxide 31 Anion Gap 13.7 BUN 20 H Creatinine 1.10 GFR Calculation 109 BUN/Creatinine Ratio 18.00 Glucose 136 H POC Glucose 142 H 166 H Calculated Osmolality 287.1 Calcium 9.4 Total Bilirubin 1.40 H AST 18 ALT 26 Alkaline Phosphatase 114 Total Protein 7.3 Albumin 3.6 Globulin 3.7 H Albumin/Globulin Ratio 0.9 L 11/14/16 11/13/16 11/13/16 04:35 20:24 15:42 WBC 9.8 RBC 4.35 Hgb 12.0 L Hct 38.3 L MCV 88.0 MCH 28 MCHC 31.3 L RDW 14.7 Plt Count 258 MPV 10.5 Neut % (Auto) 51.6 Lymph % (Auto) 35.3 [place] % (Auto) 10.2 Eos % (Auto) 2.4 Baso % (Auto) 0.2 Neut # (Auto) 5.1 Lymph # (Auto) 3.5 [place] # (Auto) 1.0 H Eos # (Auto) 0.2 Baso # (Auto) 0.0 Immature Gran % 0.3 Nucleated RBC % 0.0 Immature Gran # 0.03 Nucleated RBCs # 0.00 Sodium Potassium Chloride Carbon Dioxide Anion Gap BUN Creatinine GFR Calculation BUN/Creatinine Ratio Glucose POC Glucose 162 H 186 H Calculated Osmolality Calcium Total Bilirubin AST ALT Alkaline Phosphatase Total Protein Albumin Globulin Albumin/Globulin Ratio DS: Provider Date of admission: 11/11/16 21:23 Primary care physician: . No PCP Attending physician on admission: Sridhar Taylor MD Discharging clinician: Sotero Echols Jr., MD
== END 2016-11-14 15:09 | disposition home or self-care (01) | DRG 190 ==
LOC: N.ED 16:19 → N.EDINP 21:23 → N.TELES 22:03
PROVIDERS: ADMIT Internal Medicine Cardiovascular Disease; ATTEND Internal Medicine Cardiovascular Disease

== ENCOUNTER 2017-02-22 09:44 | Inpatient (IN) ==
[2017-02-22] MEDS ORDERED: ASPIRIN 325 MG TABLET PO STA (10:03)
[2017-02-22] MEDS ORDERED: ENOXAPARIN 100 MG/ML SYRINGE SUBCUT STA (10:03)
--- NOTE | 2017-02-22 10:06 | EKG Report ---
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
[2017-02-22] MEDS ORDERED: ENOXAPARIN 120 MG/0.8 ML SYRINGE SUBCUT ONE (10:16)
[2017-02-22] MEDS ORDERED: ASPIRIN 325 MG TABLET ONE (10:16)
--- NOTE | 2017-02-22 10:28 | XRay Report ---
XR chest 2V Date: 02/22/2017 10:03 AM History: Chest pain Comparison: 11/13/2016 Technique: PA and lateral chest Findings: The heart is borderline in size with calcification in the aortic knob. Chronic scarring in the lungs with stable mediastinum and osseous structures. Impression: No acute cardiopulmonary pathology identified. PROCEDURE INTERPRETED AT [facility] DEPARTMENT OF RADIOLOGY Final Report Signed by: Dr. Charley Knight
[2017-02-22 10:41] LABS: Albumin 3.7 G/DL (3.4-5.0); Bilirubin,Total 0.4 MG/DL (0.2-1.0); Calcium 9.3 MG/DL (8.5-10.1); Magnesium 1.8 MG/DL (1.8-2.4); Osmolality,Calculated 274.9 MOS/KG (273-304); Potassium 3.2 MMOL/L (3.5-5.1); Total Protein 7.9 G/DL (6.4-8.3)
[2017-02-22] MEDS ORDERED: POTASSIUM CHLORIDE 20 MEQ TABLET PO STA (10:49)
[2017-02-22 11:09] LABS: Basophils % 0.2 % (0.0-0.8); Eosinophils # 0.1 10*3/uL (0.0-0.87); Eosinophils % 0.6 % (0.00-10.9); Hematocrit 40.6 VOL% (42.0-52.0); Hemoglobin 13.8 GM/DL (14.0-18.0); Immature Granulocytes % 0.6 %; Immature Granulocytes Absolute 0.06 #; Lymphocytes # 2.5 10*3/uL (1.4-4.0); Lymphocytes % 26.5 % (21.2-54.2); Mean Corpuscular Hemoglobin 28 PG (27-34); Mean Corpuscular Volume 80.9 FL (87-102); Mean Platelet Volume 11.2 FL (9.6-12.0); Monocytes # 1.1 10*3/uL (0.11-0.8); Monocytes % 11.9 % (1.7-12.7); Neutrophils # 5.6 10*3/uL (1.4-7.4); Neutrophils % 60.2 % (38.7-73.9); Platelet Count 272 T/CUMM (130-400); Red Blood Count 5.02 MC/CUMM (3.8-5.5); Red Cell Distribution Width 13.3 % (9.3-17.3); White Blood Count 9.3 T/CUMM (4-12)
[2017-02-22] MEDS ORDERED: POTASSIUM CHLORIDE 20 MEQ TABLET PO ONE ×2 (11:20→18:30)
--- NOTE | 2017-02-22 11:37 | Emergency Department Note ---
Rolly Ortega Mantricia, am scribing for, and in the presence of, Cecilio Jane MD 10:15. Lucinda Ortega Phillip K, MD, personally performed the services described in this documentation, ascribed by Paolo Lofton in my presence, and it is both accurate and complete 019 . Arrival - Arrival Chief Complaint: Chest Pain Stated Complaint: cp, cramps in hand ED Nursing Triage Note: Sent from [facility] - cramping in hands and legs and chest pain onset x 3 days - pt also c/o SOB Mode of Arrival: Ambulatory Limitations: No Limitations Source: Patient Time Seen by Provider: 02/22/17 09:56 - History of Present Illness HPI Narrative: Pt is a 71 y/o black male reporting to ED by EMS as a transfer from [facility] in [place], [place] with c/o chest that onset 2 days ago. He describes the pain as cramping that radiates from his middle chest down to his fingers and legs that onset while he was sleeping. He admits to taking OTC medications but has had little relief. Pt's PCP prescribed him a diuretic 3 weeks ago. He reports SOB, diaphoresis, and nausea but denies V/D. Pt has a PMHx of HTN, HLD, and DM but denies heart problems. He reports that he stopped smoking 3 years ago. Onset (ago): day(s) Consistency: constant Severity: mild Severity scale (1-10): 4 Quality: cramping Allergies/Adverse Reactions: Allergies Allergy/AdvReac Type Severity Reaction Status Date / Time Penicillins AdvReac HIVES Verified 07/14/16 11:35 Home Medications: Home Medications Medication Instructions Recorded Confirmed Type Budesonide/Formoterol 160-4.5 2 puff INH BID inhaler 07/16/16 11/11/16 Rx [Symbicort 160-4.5] glipiZIDE [Glucotrol] 5 mg PO BIDAC tablet 07/16/16 11/11/16 Rx Amlodipine Besylate 10 mg PO DAILY 11/11/16 11/11/16 History Atorvastatin Calcium 20 mg PO DAILY 11/11/16 11/11/16 History Metformin HCl 500 mg PO BIDAC 11/11/16 11/11/16 History Montelukast Sodium 10 mg PO DAILY 11/11/16 11/11/16 History Oxycodone HCl/Acetaminophen 1 each PO QID PRN 11/12/16 11/12/16 History [Oxycodone-Acetaminophen 5-325] Pantoprazole Tab [Protonix Tab] 40 mg PO DAILY #30 tablet 11/14/16 Rx hydroCHLOROthiazide 6.25 mg PO DAILY #30 tablet 11/14/16 Rx [Hydrochlorothiazide] Review of System - Review of System 12 point system: reviewed and no additional remarkable complaints except as stated - Review of System Constitutional: Present: diaphoresis. Absent: chills, fever Eyes: Absent: discharge, pain, redness Head/Ears/Nose/Throat: Absent: earache Respiratory: Absent: cough, respiratory distress, wheezing Cardiovascular: Present: chest pain (across the middle), dyspnea on exertion. Absent: palpitations Gastrointestinal: Absent: abdominal pain, nausea, vomiting, diarrhea Genitourinary male: Absent: urgency, dysuria, frequency Musculoskeletal: Present: arm pain, leg pain. Absent: arthralgia, back pain, lower back pain, neck pain Skin: Absent: rash, lesions Neurological: Absent: headache, weakness Psychiatric: Absent: anxiety, depression Medical,Surgical,& Family Hx - Medical History Cardio: History of: Hypertension Psychological: History of: Psychiatric Problems (psychosis, unspecified) Endocrine: History of: Diabetes Mellitus (NIDDM), Dyslipidemia Respiratory: History of: COPD Musculoskeletal: History of: Degenerative Disk Disease - Surgical History Abdominal Surgeries: Surgical HX of: Abdominal Surgery, Appendectomy - Family History Family History: Reports;: Family Cancer (MOTHER-UNKNOWN OF WHAT KIND) Denies;: Family Diabetes, Family Heart Disease, Family Hypertension, Family Psychiatric Problems, Family Stroke - Social History Smoking Status: Former smoker Frequency of Alcohol Use: None Type of Drug Use: None Exam Vital Signs: Vital Signs Temperature 97.3 F L 02/22/17 09:46 Pulse Rate 123 H 02/22/17 09:46 Respiratory Rate 22 02/22/17 09:46 Blood Pressure 122/87 02/22/17 09:46 O2 Sat by Pulse Oximetry 97 02/22/17 09:46 - General General appearance: alert, in no apparent distress - Head Head exam: Present: atraumatic, normocephalic, normal inspection - Eye Eye exam: Present: normal appearance, PERRL, EOMI - ENT ENT exam: Present: normal exam, normal oropharynx, mucous membranes moist, TM's normal bilaterally, normal external ear exam - Neck Neck exam: Present: normal inspection, full ROM, trachea midline. Absent: tenderness - Chest Chest inspection: Present: normal inspection, symmetric chest wall rise. Absent : tenderness - Respiratory Respiratory exam: Present: normal lung sounds bilaterally - Cardiovascular Cardiovascular exam: Present: normal rhythm, tachycardia, normal heart sounds - Abdominal Exam Abdominal exam: Present: soft, normal bowel sounds. Absent: distention, tenderness, guarding, rebound - Extremities Exam Extremities exam: Present: normal inspection, full ROM, normal capillary refill. Absent: tenderness, pedal edema - Back Exam Back exam: Present: normal inspection, full ROM. Absent: tenderness - Neurological Exam Neurological exam: Present: alert, oriented X3, CN II-XII intact, normal gait, reflexes normal - Psychiatric Psychiatric exam: Present: normal affect, normal mood - Skin Skin exam: Present: warm, dry, intact, normal color Results - Labs CBC & BMP: 02/22/17 10:08 02/22/17 10:08 Lab Results: I have reviewed the patients labs Labs: Laboratory Tests 02/22/17 02/22/17 10:08 10:08 Hgb 13.8 L Hct 40.6 L MCV 80.9 L [place] # (Auto) 1.1 H Sodium 129 L Potassium 3.2 L Chloride 90 L Anion Gap 15.2 H BUN 35 H Creatinine 1.80 H Glucose 254 H Globulin 4.2 H Albumin/Globulin Ratio 0.8 L - EKG EKG results: interpreted by KOKO (Sinus tachycardia) - Diagnostic Findings Procedure: Chest x-ray: report reviewed by me (No acute cardiopulmonary pathology identified. ) Disposition Clinical Impression: Hypokalemia, Hyponatremia, Chest pain, Possible angina Case discussed with: patient Disposition: Still a Patient Condition: Guarded Additional Instructions: Admit to the hospitalist for potassium replacement and cardiac evaluation.
[2017-02-22] MEDS ORDERED: SODIUM CHLOR 0.9% KCL 40 MEQ 40 MEQ/1,000 ML BAG IV SCH (12:00)
[2017-02-22] MEDS ORDERED: BISACODYL 5 MG TABLET PO PRN (12:04)
[2017-02-22] MEDS ORDERED: DEXTROSE 50% 25 GM/50 ML VIAL IV PRN (12:04)
[2017-02-22] MEDS ORDERED: GLUCAGON 1 MG VIAL IM PRN (12:04)
[2017-02-22] MEDS ORDERED: DOCUSATE SODIUM 100 MG CAPSULE PO PRN (12:04)
[2017-02-22] MEDS ORDERED: ACETAMINOPHEN 325 MG TABLET PO PRN (12:04)
[2017-02-22] MEDS ORDERED: HYDROmorphone 2 MG/1 ML VIAL ONE (13:13)
[2017-02-22] MEDS ORDERED: HYDROmorphone 2 MG/1 ML VIAL IV ONE (13:13)
[2017-02-22] MEDS ORDERED: SODIUM CHLORIDE 0.9% 1,000 ML IV SCH (13:38)
--- NOTE | 2017-02-22 13:40 | Hospitalist History & Physical ---
Assessment and Plan (1) Chest pain Status: Acute Assessment and plan: Telemetry monitoring. Serial troponins. Repeat EKG in am. CXR unremarkable. Current Visit: Yes (2) Hypokalemia Status: Acute Assessment and plan: K+ replacement. Repeat labs in am. Check mag level. Telemetry monitoring. Hold lasix for now. Current Visit: Yes (3) Hyponatremia Status: Acute Assessment and plan: Repeat BMP in am. Gentle IVF hydration. Telemetry monitoring. Neuro checks. Current Visit: Yes (4) DM2 (diabetes mellitus, type 2) Status: Chronic Assessment and plan: Accuchecks ACHS. SSI. Hemoglobin A1c in am. Diabetic diet. Current Visit: No History of Present Illness Chief complaint: hand cramping and chest tightness History of present illness: Mr. Cisneros is a 71 year old black male with a history of htn, dm, chf, and hyperlidemia who presents to the ED today with hand and leg cramping with chest tightness. The patient presented to the [facility] in [place] this morning and was subsequently transferred here. Pt. states that the hand cramping has been going over for about 3 weeks on and off but worsened recently. The patient also states that he was recently given a "water pill" by Dr. Schwarz his PCP. When questioned about the chest tightness, the patient states that this has been going on for the last 2 days and sometimes he becomes short of breath when this occurs. Pt. admits to radiation to the right side of his chest.Pt states "makes me feel like I can't breath". Pt. denies any home O2 use. Pt also denies fever, chills or any abd pain. He does admit to take OTC products but does not give name of pills he takes. Labs indicate a low potassium 3.2 and low sodium 129 with elevated bun and creatinine 35 and 1.8 respectively. Pt. will be admitted to the service for eval and treatment t Home Medications Medication Instructions Recorded Confirmed Type Budesonide/Formoterol 160-4.5 2 puff INH BID inhaler 07/16/16 02/22/17 Rx [Symbicort 160-4.5] glipiZIDE [Glucotrol] 5 mg PO BIDAC tablet 07/16/16 02/22/17 Rx Amlodipine Besylate 10 mg PO DAILY 11/11/16 02/22/17 History Atorvastatin Calcium 20 mg PO DAILY 11/11/16 02/22/17 History Metformin HCl 500 mg PO BIDAC 11/11/16 02/22/17 History Montelukast Sodium 10 mg PO DAILY 11/11/16 02/22/17 History Oxycodone HCl/Acetaminophen 1 each PO QID PRN 11/12/16 02/22/17 History [Oxycodone-Acetaminophen 5-325] Pantoprazole Tab [Protonix Tab] 40 mg PO DAILY #30 tablet 11/14/16 02/22/17 Rx hydroCHLOROthiazide 6.25 mg PO DAILY #30 tablet 11/14/16 02/22/17 Rx [Hydrochlorothiazide] Allergies Allergy/AdvReac Type Severity Reaction Status Date / Time Penicillins AdvReac HIVES Verified 07/14/16 11:35 Medical,Surgical,& Family Hx - Medical History Cardio: History of: Hypertension Psychological: History of: Psychiatric Problems (psychosis, unspecified) Endocrine: History of: Diabetes Mellitus (NIDDM), Dyslipidemia Respiratory: History of: COPD Musculoskeletal: History of: Degenerative Disk Disease - Surgical History Abdominal Surgeries: Surgical HX of: Abdominal Surgery, Appendectomy - Family History Family History: Reports;: Family Cancer (MOTHER-UNKNOWN OF WHAT KIND) Denies;: Family Diabetes, Family Heart Disease, Family Hypertension, Family Psychiatric Problems, Family Stroke - Social History Smoking Status: Former smoker Frequency of Alcohol Use: None Type of Drug Use: None Marital Status: Lives With:: Spouse Functional capacity: independent ambulation - Constitutional Constitutional: Absent: fever(s), headache(s) - EENT Eyes: Present: blurry vision, requires corrective lense - Cardiovascular Cardiovascular: Present: chest pain at rest, dyspnea (short of nicol) - Respiratory Respiratory: Absent: cough - Gastrointestinal Gastrointestinal: Absent: abdominal pain, nausea, vomiting - Genitourinary Genitourinary: Absent: difficulty urinating, hematuria - Musculoskeletal Musculoskeletal: Present: muscle cramps (hands and feet) - Neurological Neurological: Absent: abnormal speech, confusion - Psychiatric Psychiatric: Absent: anxiety Exam - Constitutional Vitals: Period Temp Pulse Resp BP Sys/Knutson Pulse Ox Last 24 Hr 88-97 18-18 138-141/82-91 99-100 General appearance: no acute distress, over weight - Head Head exam: Present: normal inspection, normocephalic - Eye Eye exam: Present: EOMI Pupils: Present: SABINE - Respiratory Respiratory exam: Present: clear to auscultation bilaterally. Absent: wheezes - Cardiovascular Cardiovascular exam: Present: regular rate and rhythm - GI/Abdominal GI/Abdominal exam: Present: normal bowel sounds, soft. Absent: tenderness - Extremities Exam Extremities exam: Present: normal capillary refill, full ROM. Absent: edema - Neurological Exam Neurological exam: Present: alert, oriented X3, normal gait - Psychiatric Psychiatric exam: Present: normal affect, normal mood - Skin Skin exam: Present: normal color, warm, dry Results - Labs CBC & BMP: 02/22/17 10:08 02/22/17 10:08 Lab Results: I have reviewed the past 24 hour labs
[2017-02-22] MEDS ORDERED: POTASSIUM CHLORIDE RIDER 10 MEQ in PREMIX 1 EACH IV PRN (13:47)
[2017-02-22] MEDS: INSULIN REGULAR 100 UNIT/ML SUBCUT SCH ×2 (16:49→20:25)
[2017-02-22] MEDS: glipiZIDE 5 MG TABLET PO SCH (16:49)
[2017-02-22] MEDS ORDERED: MAGNESIUM SULF RIDER 2 GM in PREMIX 1 EACH IV ONE (18:19)
[2017-02-22] MEDS: SODIUM CHLOR 0.9% KCL 40 MEQ 40 MEQ/1,000 ML BAG IV SCH (18:35)
[2017-02-22] MEDS: CYCLOBENZAPRINE 10 MG TABLET PO PRN (18:40)
[2017-02-22] MEDS: BUDESONIDE/FORMOTEROL 160-4.5 INHALER 6 GM INH SCH (20:26)
[2017-02-22 23:08] LABS: Troponin I Only < 0.015 NG/ML (0.00-0.045)
[2017-02-23 00:58] LABS: Apearance,Urine CLEAR (Clear); Bilirubin,Urine Negative (Negative); Blood, Urine Negative (Negative); Glucose,Urine (UA) >=500 mg/dL (Negative); Hyaline Casts,Urine 4 /LPF (0-3); Ketones,Urine Negative (Negative); Mucus,Urine Occasional /LPF (Occasional); Nitrite,Urine Negative (Negative); Protein,Urine Negative; RBC,Urine <1 /HPF (0-4); Renal Epithelial Cells,Urine Occasional /HPF (<1); Squamous Epithelial Cell,Urine Occasional /HPF (0-10); Urine Color Straw (Yellow); Urine Urobilinogen < 2.0 EU/DL (0.2-1.0); WBC,Urine 1 /HPF (0-6)
[2017-02-23] MEDS: CYCLOBENZAPRINE 10 MG TABLET PO PRN ×2 (02:19→09:00)
--- NOTE | 2017-02-23 04:10 | EKG Report ---
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
[2017-02-23] MEDS: SODIUM CHLOR 0.9% KCL 40 MEQ 40 MEQ/1,000 ML BAG IV SCH (04:38)
[2017-02-23 05:20] LABS: Basophils % 0.5 % (0.0-0.8); Eosinophils # 0.1 10*3/uL (0.0-0.87); Eosinophils % 1.7 % (0.00-10.9); Hematocrit 35.7 VOL% (42.0-52.0); Hemoglobin 11.8 GM/DL (14.0-18.0); Immature Granulocytes % 0.5 %; Immature Granulocytes Absolute 0.03 #; Lymphocytes # 2.4 10*3/uL (1.4-4.0); Lymphocytes % 36.6 % (21.2-54.2); Mean Corpuscular HGB Conc 33.1 GM/DL (32-36); Mean Corpuscular Hemoglobin 27 PG (27-34); Mean Corpuscular Volume 82.3 FL (87-102); Mean Platelet Volume 11.1 FL (9.6-12.0); Monocytes # 0.8 10*3/uL (0.11-0.8); Monocytes % 12.9 % (1.7-12.7); Neutrophils # 3.1 10*3/uL (1.4-7.4); Neutrophils % 47.8 % (38.7-73.9); Platelet Count 227 T/CUMM (130-400); Red Blood Count 4.34 MC/CUMM (3.8-5.5); Red Cell Distribution Width 13.4 % (9.3-17.3); White Blood Count 6.5 T/CUMM (4-12)
[2017-02-23 06:14] LABS: Calcium 8.8 MG/DL (8.5-10.1); Magnesium 2.3 MG/DL (1.8-2.4); Osmolality,Calculated 274.4 MOS/KG (273-304); Potassium 3.8 MMOL/L (3.5-5.1); Risk Ratio 4.33; Thyroid Stimulating Hormone 2.01 uIU/ml (0.358-3.74); VLDL CHOLESTEROL 58.6 MG/DL
--- NOTE | 2017-02-23 07:51 | EKG Report ---
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
[2017-02-23] MEDS: BUDESONIDE/FORMOTEROL 160-4.5 INHALER 6 GM INH SCH (08:46)
[2017-02-23] MEDS: glipiZIDE 5 MG TABLET PO SCH (08:47)
[2017-02-23] MEDS: INSULIN REGULAR 100 UNIT/ML SUBCUT SCH ×2 (08:47→11:49)
[2017-02-23] MEDS ORDERED: amLODIPine 10 MG TABLET PO SCH (09:00)
[2017-02-23] MEDS ORDERED: MONTELUKAST 10 MG TABLET PO SCH (09:00)
[2017-02-23] MEDS ORDERED: ATORVASTATIN 20 MG TABLET PO SCH (09:00)
[2017-02-23 11:42] VITALS: BP 136/81
--- NOTE | 2017-02-23 12:04 | Discharge Summary ---
Hospital Course - Hospital Course Hospital Course: 71-year-old male admitted to the hospital with hyponatremia, hypokalemia, dehydration. The patient has been taking diuretic medications at home without potassium supplementation. He presented to the emergency department with cramping and chest pain. He was having musculoskeletal chest pain without cardiac etiology. His cardiac enzymes remain negative. Hemoglobin A1c was elevated at 11.6. Triglycerides were also high as well as an LDL of 101 which is above goal. Patient is on a statin. He will need to follow-up with his primary care physician at the [place] [facility]. Mr. Cisneros's symptoms have completely resolved. His potassium and magnesium are normal. He is being discharged home today with prescription for potassium supplement 20 mEq to take with diuretic as needed. He had no complications during the course of this hospitalization. His home medications were reviewed and reconciled. The patient's was at the bedside and verbalized her understanding of the discharge instructions. The patient is a full code. - Time spent with patient Time with patient DS: Greater than 30 minutes (Discharge time 33 minutes) Diagnosis - Discharge Diagnosis (1) Chest pain Status: Resolved (2) Hyperlipidemia associated with type 2 diabetes mellitus Status: Chronic (3) DM2 (diabetes mellitus, type 2) Status: Chronic (4) Hypertension Status: Chronic (5) Hypokalemia Status: Resolved (6) Hyponatremia Status: Resolved Discharge Plan - Discharge Data Disposition: Disch To Home/Self Care Condition at Discharge: Stable Discharge Diet: advance to your usual diet Activity: resume usual activities as tolerated Hygiene: no restrictions Weight Bearing at Discharge: full weight bearing Contact your physician if you experience:: fever over 101, Difficulty voiding, Shortness of breath - Discharge Medications New Potassium Chloride Cap/Tab [K Dur] 20 meq PO DAILY #30 tablet Continue Budesonide/Formoterol 160-4.5 [Symbicort 160-4.5] 2 puff INH BID inhaler glipiZIDE [Glucotrol] 5 mg PO BIDAC tablet Montelukast Sodium 10 mg PO DAILY Amlodipine Besylate 10 mg PO DAILY Atorvastatin Calcium 20 mg PO DAILY Metformin HCl 500 mg PO BIDAC Oxycodone HCl/Acetaminophen [Oxycodone-Acetaminophen 5-325] 1 each PO QID PRN PRN Reason: Pain Pantoprazole Tab [Protonix Tab] 40 mg PO DAILY #30 tablet Discontinued hydroCHLOROthiazide [Hydrochlorothiazide] 6.25 mg PO DAILY #30 tablet - Follow Up or Referral - Forms/Instructions Exam - Constitutional Vitals: Period Temp Pulse Resp BP Sys/Knutson Pulse Ox Last 24 Hr 96.5 F-98.1 F 69-97 18-20 132-158/74-92 90-100 Exam: Constitutional System: No distress. No tremulousness. Head: Normocephalic, atraumatic. Ears, Nose and Throat System: No pain or tenderness. No epistaxis or discharge Eyes System: Pupils equal, round, and reactive. Extraocular muscles intact. Neck: Supple, without adenopathy, No jugular venous distention. No thyromegaly, neck mass, or prior surgery apparent. Respiratory System: Chest clear to auscultation. Cardiovascular System: Heart with regular rate and rhythm. No murmur. GI System: Abdomen soft, nontender. Normo active bowel sounds present. Musculoskeletal System: limbs with no pedal edema. Full distal pulses. Neurological System: No discernable sensory deficit. No aphasia Psychiatric System: Conversation is rational Discharge Results Procedures and tests throughout hospitalization: Pending Orders 02/24/17 04:00 Basic Metabolic Panel IN AM Comp Blood Count Auto Diff IN AM Labs on day of discharge: Labs from last 24 hours 02/23/17 02/23/17 02/23/17 11:34 07:23 04:36 WBC RBC Hgb Hct MCV MCH MCHC RDW Plt Count MPV Neut % (Auto) Lymph % (Auto) Weber % (Auto) Eos % (Auto) Baso % (Auto) Neut # (Auto) Lymph # (Auto) Weber # (Auto) Eos # (Auto) Baso # (Auto) Immature Gran % Nucleated RBC % Immature Gran # Nucleated RBCs # Sodium Potassium Chloride Carbon Dioxide Anion Gap BUN Creatinine GFR Calculation BUN/Creatinine Ratio Glucose POC Glucose 195 H 191 H Hemoglobin A1c 11.6 H Calculated Osmolality Calcium Magnesium Total Creatine Kinase CK-MB (CK-2) Troponin I Triglycerides Cholesterol LDL Cholesterol VLDL Cholesterol HDL Cholesterol Heart Disease Risk Ratio TSH 3rd Generation Urine Color Urine Appearance Urine pH Ur Specific Somers Urine Protein Urine Glucose (UA) Urine Ketones Urine Blood Urine Nitrate Urine Bilirubin Urine Urobilinogen Urine Leukocytes Urine RBC Urine WBC Ur Squamous Epith Cells Ur Renal Epithelial Cell Hyaline Casts Urine Mucus Ur Culture Indicated? 02/23/17 02/23/17 02/22/17 04:36 04:36 Unknown WBC 6.5 D RBC 4.34 Hgb 11.8 L D Hct 35.7 L MCV 82.3 L MCH 27 MCHC 33.1 RDW 13.4 Plt Count 227 MPV 11.1 Neut % (Auto) 47.8 Lymph % (Auto) 36.6 Weber % (Auto) 12.9 H Eos % (Auto) 1.7 Baso % (Auto) 0.5 Neut # (Auto) 3.1 Lymph # (Auto) 2.4 Weber # (Auto) 0.8 Eos # (Auto) 0.1 Baso # (Auto) 0.0 Immature Gran % 0.5 Nucleated RBC % 0.0 Immature Gran # 0.03 Nucleated RBCs # 0.00 Sodium 133 L Potassium 3.8 Chloride 97 L Carbon Dioxide 27 Anion Gap 12.8 BUN 25 H D Creatinine 1.10 GFR Calculation 102 BUN/Creatinine Ratio 22.00 H Glucose 188 H POC Glucose Hemoglobin A1c Calculated Osmolality 274.4 Calcium 8.8 Magnesium 2.3 Total Creatine Kinase CK-MB (CK-2) Troponin I Triglycerides 293 H Cholesterol 173 LDL Cholesterol 101.0 VLDL Cholesterol 58.6 HDL Cholesterol 40 Heart Disease Risk Ratio 4.33 TSH 3rd Generation 2.010 Urine Color Straw Urine Appearance Clear Urine pH 5.0 Ur Specific Somers 1.020 Urine Protein Negative Urine Glucose (UA) >=500 Urine Ketones Negative Urine Blood Negative Urine Nitrate Negative Urine Bilirubin Negative Urine Urobilinogen < 2.0 H Urine Leukocytes Negative Urine RBC <1 Urine WBC 1 Ur Squamous Epith Cells Occasional Ur Renal Epithelial Cell Occasional Hyaline Casts 4 Urine Mucus Occasional Ur Culture Indicated? Not indicated 02/22/17 02/22/17 02/22/17 22:36 20:06 16:00 WBC RBC Hgb Hct MCV MCH MCHC RDW Plt Count MPV Neut % (Auto) Lymph % (Auto) Weber % (Auto) Eos % (Auto) Baso % (Auto) Neut # (Auto) Lymph # (Auto) Weber # (Auto) Eos # (Auto) Baso # (Auto) Immature Gran % Nucleated RBC % Immature Gran # Nucleated RBCs # Sodium Potassium Chloride Carbon Dioxide Anion Gap BUN Creatinine GFR Calculation BUN/Creatinine Ratio Glucose POC Glucose 269 H 368 H Hemoglobin A1c Calculated Osmolality Calcium Magnesium Total Creatine Kinase 98 CK-MB (CK-2) < 1.0 Troponin I < 0.015 Triglycerides Cholesterol LDL Cholesterol VLDL Cholesterol HDL Cholesterol Heart Disease Risk Ratio TSH 3rd Generation Urine Color Urine Appearance Urine pH Ur Specific Somers Urine Protein Urine Glucose (UA) Urine Ketones Urine Blood Urine Nitrate Urine Bilirubin Urine Urobilinogen Urine Leukocytes Urine RBC Urine WBC Ur Squamous Epith Cells Ur Renal Epithelial Cell Hyaline Casts Urine Mucus Ur Culture Indicated? 02/22/17 02/22/17 15:58 13:42 WBC RBC Hgb Hct MCV MCH MCHC RDW Plt Count MPV Neut % (Auto) Lymph % (Auto) Weber % (Auto) Eos % (Auto) Baso % (Auto) Neut # (Auto) Lymph # (Auto) Weber # (Auto) Eos # (Auto) Baso # (Auto) Immature Gran % Nucleated RBC % Immature Gran # Nucleated RBCs # Sodium Potassium Chloride Carbon Dioxide Anion Gap BUN Creatinine GFR Calculation BUN/Creatinine Ratio Glucose POC Glucose Hemoglobin A1c Calculated Osmolality Calcium Magnesium Total Creatine Kinase CK-MB (CK-2) Troponin I < 0.015 < 0.015 Triglycerides Cholesterol LDL Cholesterol VLDL Cholesterol HDL Cholesterol Heart Disease Risk Ratio TSH 3rd Generation Urine Color Urine Appearance Urine pH Ur Specific Somers Urine Protein Urine Glucose (UA) Urine Ketones Urine Blood Urine Nitrate Urine Bilirubin Urine Urobilinogen Urine Leukocytes Urine RBC Urine WBC Ur Squamous Epith Cells Ur Renal Epithelial Cell Hyaline Casts Urine Mucus Ur Culture Indicated? DS: Provider Date of admission: 02/22/17 12:03 Primary care physician: . No PCP Attending physician on admission: Mehnaz Jacobson MD Consults: 02/22/17 13:19 Consult to Pharmacy [CONS] Routine Reason for Pharmacy Consult: Adjust Meds Renal Funct Discharging clinician: Mehnaz Jacobson MD Expected date of discharge: 02/23/17
== END 2017-02-23 13:12 | disposition home or self-care (01) | DRG 641 ==
LOC: N.ED 09:44 → N.EDINP 12:03 → N.TELES 13:10
PROVIDERS: ADMIT Family Medicine; ATTEND Family Medicine